=== PATIENT | female | born 1995 | race African-American/Black ===

== ENCOUNTER 2016-10-05 18:36 | Emergency (ER) | payer OTHER ==
[~2016-10-05] VITALS: Ht 154.9 cm; Wt 94.3 kg
[~2016-10-05 18:36] MED LIST: IBUPROFEN800 MG PO; MACROBID100 MG PO; NO MEDS; PERCOCET 5/31 TABLET PO; PRENATAL TABLE1 EAC3 PO; TRAMADOL HCL50 MG PO; ZOFRAN ODT4 MG PO; prenatal
[2016-10-05 18:42] VITALS: BP 143/76
== END 2016-10-05 22:00 | disposition left against medical advice (07) ==
LOC: EME 18:36
DX: R51 Headache (principal); Z53.21 Procedure and treatment not carried out due to patient leaving prior to being seen by health care provider

== ENCOUNTER 2017-02-26 22:11 | Emergency (ER) | payer OTHER ==
[~2017-02-26] VITALS: Ht 154.9 cm; Wt 91.8 kg
[2017-02-26 23:22] LABS: HEMATOCRIT 41.6 % (36.0-46.0); MCH 27.7 PG (29.0-34.0); MCHC 31.3 G/DL (30.0-36.0); MCV 88.5 FL (83-99); MEAN PLAT.VOLUME 11.5 uM^3 (9.5-12.4); PLATELET COUNT 232 K/uL (156-360); RBC DIS.WIDTH-CV 13.1 % (11.8-14.6); RBC DIS.WIDTH-SD 42.7 % (39-53); WHITE BLOOD COUNT 9.7 K/uL (4.1-10.2)
[2017-02-26 23:35] LABS: CHLORIDE 108 mEq/L (99-109); POTASSIUM 3.5 mEq/L (3.7-5.4); SODIUM 140 mEq/L (136-147)
[2017-02-26 23:37] LABS: GLUCOSE 128 mg/dL (70-99)
[2017-02-26 23:39] LABS: ANION GAP 12 MEQ/L (2-14); TOTAL BILIRUBIN 0.2 mg/dL (0.0-1.0)
[2017-02-26 23:41] LABS: ALKALINE PHOSPHATASE 74 IU/L (3-129); GFR ESTIMATE (CALCULATED) > 59 mL/min/
[2017-02-26 23:42] LABS: UREA NITROGEN (BUN) 10 mg/dL (9-23)
[2017-02-26 23:44] LABS: LIPASE 20 U/L (1.0-51.0)
[2017-02-26 23:54] LABS: QUANTITATIVE HCG < 4.0 MIU/ML
[2017-02-27] MEDS ORDERED: ZANTAC150 MG PO (00:11)
[2017-02-27] MEDS ORDERED: ZOFRAN4 MG PO (00:11)
[2017-02-27 00:30] VITALS: BP 128/82
== END 2017-02-27 00:32 | disposition home or self-care (01) ==
LOC: EME 22:11
PROVIDERS: Physician Assistant
DX: R11.0 Nausea (principal); R10.10 Upper abdominal pain, unspecified; Z97.8 Presence of other specified devices; Z79.3 Long term (current) use of hormonal contraceptives; F17.200 Nicotine dependence, unspecified, uncomplicated
CPT/HCPCS: 80053; 83690; 84702; 85027; 99281; 99284

== ENCOUNTER 2017-06-24 22:34 | Emergency (ER) | payer OTHER ==
[~2017-06-24] VITALS: Ht 154.9 cm; Wt 92.9 kg
[~2017-06-24 22:34] MED LIST changes: +ZANTAC150 MG PO; +ZOFRAN4 MG PO
[2017-06-24 22:53] VITALS: BP 122/80
== END 2017-06-25 01:55 | disposition home or self-care (01) ==
LOC: EME 22:34
DX: S93.401A Sprain of unspecified ligament of right ankle, initial encounter (principal); X50.1XXA Overexertion from prolonged static or awkward postures, initial encounter; S80.00XA Contusion of unspecified knee, initial encounter; S80.212A Abrasion, left knee, initial encounter; S80.211A Abrasion, right knee, initial encounter; W18.39XA Other fall on same level, initial encounter; F17.200 Nicotine dependence, unspecified, uncomplicated
CPT/HCPCS: 73564; 73610; 99281; 99284

== ENCOUNTER 2017-12-05 11:38 | Emergency (ER) | payer OTHER ==
[~2017-12-05] VITALS: Ht 157.5 cm; Wt 96.6 kg
[2017-12-05] MEDS ORDERED: SKELAXIN800 MG PO (13:44)
[2017-12-05] MEDS ORDERED: LIDODERM 5% P1 PATCH TD (13:44)
[2017-12-05] MEDS ORDERED: MOBIC7.5 MG PO (13:44)
[2017-12-05 14:05] VITALS: BP 137/95
== END 2017-12-05 14:09 | disposition home or self-care (01) ==
LOC: EME 11:38
DX: M54.41 Lumbago with sciatica, right side (principal); F17.200 Nicotine dependence, unspecified, uncomplicated; Z91.013 Allergy to seafood
CPT/HCPCS: 99281; 99284; J1885

== ENCOUNTER 2018-02-20 00:07 | Emergency (ER) | payer OTHER ==
[~2018-02-20] VITALS: Ht 154.9 cm; Wt 94.3 kg
[~2018-02-20 00:07] MED LIST changes: +LIDODERM 5% P1 PATCH TD; +MOBIC7.5 MG PO; +SKELAXIN800 MG PO
[2018-02-20 01:04] LABS: HEMATOCRIT 39.7 % (36.0-46.0); HEMOGLOBIN 13.1 G/DL (11.9-15.5); MCH 28.9 PG (29.0-34.0); MCV 87.6 FL (83-99); PLATELET COUNT 285 K/uL (156-360); RBC DIS.WIDTH-CV 12.1 % (11.8-14.6); RBC DIS.WIDTH-SD 38.8 % (39-53); RED BLOOD COUNT 4.53 M/uL (3.80-5.20); WHITE BLOOD COUNT 10.9 K/uL (4.1-10.2)
[2018-02-20 01:16] LABS: ALBUMIN 4.3 g/dL (3.2-4.8); CHLORIDE 104 mEq/L (99-109)
[2018-02-20 01:17] LABS: POTASSIUM 4.2 mEq/L (3.7-5.4); SODIUM 140 mEq/L (136-147)
[2018-02-20 01:19] LABS: GLUCOSE 105 mg/dL (70-99); TOTAL PROTEIN 7.9 g/dL (6.4-8.3)
[2018-02-20 01:21] LABS: TOTAL BILIRUBIN 0.2 mg/dL (0.0-1.0)
[2018-02-20 01:22] LABS: ALKALINE PHOSPHATASE 87 IU/L (3-129); CREATININE 0.8 mg/dL (0.6-1.3); GFR ESTIMATE (CALCULATED) > 59 mL/min/
[2018-02-20 01:24] LABS: AST (GOT) 24 IU/L (2-34); UREA NITROGEN (BUN) 15 mg/dL (9-23)
[2018-02-20 01:25] LABS: ALT (GPT) 43 IU/L (3-49)
[2018-02-20 01:31] LABS: QUANTITATIVE HCG < 4.0 MIU/ML
[2018-02-20 05:25] LABS: APPEARANCE CLEAR ((CLEAR)); BILIRUBIN NEGATIVE; BLOOD NEGATIVE; COLOR YELLOW ((YELLOW)); GLUCOSE (STRIP) NEGATIVE; KETONES NEGATIVE; LEUKOCYTES NEGATIVE; NITRITE NEGATIVE; PROTEIN (STRIP) NEGATIVE; SPECIFIC GRAVITY 1.024 (1.000-1.030); UCUL ADDED? NO; UROBILINOGEN 0.2 MG/DL (0.2-1.0)
[2018-02-20 06:15] VITALS: BP 108/65
== END 2018-02-20 06:16 | disposition home or self-care (01) ==
LOC: EME 00:07
DX: R10.10 Upper abdominal pain, unspecified (principal); F17.200 Nicotine dependence, unspecified, uncomplicated
CPT/HCPCS: 80053; 81003; 84702; 85027; 99281; 99284

== ENCOUNTER 2018-03-09 21:29 | Emergency (ER) | payer OTHER ==
[~2018-03-09] VITALS: Ht 154.9 cm; Wt 93.8 kg
[2018-03-09 22:14] LABS: HEMATOCRIT 35.9 % (36.0-46.0); HEMOGLOBIN 11.8 G/DL (11.9-15.5); MCH 28.8 PG (29.0-34.0); MCHC 32.9 G/DL (30.0-36.0); MCV 87.6 FL (83-99); PLATELET COUNT 249 K/uL (156-360); RBC DIS.WIDTH-CV 12.4 % (11.8-14.6); RBC DIS.WIDTH-SD 39.8 % (39-53); WHITE BLOOD COUNT 16.1 K/uL (4.1-10.2)
[2018-03-09 22:22] LABS: D-DIMER ELISA < 150.00 ng/mLDDU (<230)
[2018-03-09 22:23] LABS: ALBUMIN 3.8 g/dL (3.2-4.8); CHLORIDE 103 mEq/L (99-109); POTASSIUM 3.8 mEq/L (3.7-5.4); SODIUM 137 mEq/L (136-147)
[2018-03-09 22:25] LABS: GLUCOSE 101 mg/dL (70-99)
[2018-03-09 22:26] LABS: TOTAL PROTEIN 6.8 g/dL (6.4-8.3)
[2018-03-09 22:27] LABS: TOTAL BILIRUBIN 0.3 mg/dL (0.0-1.0)
[2018-03-09 22:29] LABS: ALKALINE PHOSPHATASE 73 IU/L (3-129); CREATININE 0.8 mg/dL (0.6-1.3); GFR ESTIMATE (CALCULATED) > 59 mL/min/
[2018-03-09 22:30] LABS: UREA NITROGEN (BUN) 9 mg/dL (9-23)
[2018-03-09 22:31] LABS: AST (GOT) 13 IU/L (2-34)
[2018-03-09 22:32] LABS: ALT (GPT) 7 IU/L (3-49)
[2018-03-09 22:56] LABS: MONOSPOT (MONONUCLEOSIS SEROL) NEGATIVE
[2018-03-09 23:54] LABS: APPEARANCE CLEAR ((CLEAR)); BILIRUBIN NEGATIVE; BLOOD NEGATIVE; COLOR YELLOW ((YELLOW)); GLUCOSE (STRIP) NEGATIVE; KETONES NEGATIVE; LEUKOCYTES NEGATIVE; NITRITE NEGATIVE; PROTEIN (STRIP) NEGATIVE; SPECIFIC GRAVITY 1.018 (1.000-1.030); UCUL ADDED? NO
[2018-03-10] MEDS ORDERED: PROVENTIL HFA6.7 GM IH (01:13)
[2018-03-10 01:26] VITALS: BP 116/75
== END 2018-03-10 01:29 | disposition home or self-care (01) ==
LOC: EME 21:29
PROVIDERS: Emergency Medicine
DX: J02.9 Acute pharyngitis, unspecified (principal); R50.81 Fever presenting with conditions classified elsewhere; F17.200 Nicotine dependence, unspecified, uncomplicated
CPT/HCPCS: 80053; 81003; 81025; 85027; 85379; 86308; 94640; 99281; 99285; J1100; J7030